=== PATIENT | female | born 1970 | race African-American/Black ===

== ENCOUNTER 2018-01-25 13:10 | Emergency (ER) | payer OTHER ==
[~2018-01-25] VITALS: Ht 147.3 cm; Wt 86.2 kg
--- NOTE | 2018-01-25 13:59 | PHYS DOC ---
Adult General Chief Complaint Chief Complaint: LOWER EXT PAIN HPI HPI Patient is a 47 year old female who presents with states that she last stays that she's had bilateral toe numbness bilateral leg pain. Patient states of late pain only happens when she gets up to walk. States that she was having numbness in the left leg but that it has subsided and has not happened today. Patient states that she just started a new job after not working for 11 years. She started working on the and work from 9 AM to 7 PM moving been sending [employer] and putting up close on racks. She denies any extremity swelling. He denies any chest pain or shortness of air. Patient states that she has quit smoking but uses nicotine gum in the patch but still uses the [place]. Patient states that she does not do marijuana anymore since November. Patient's past medical history consists of peripheral vascular disease, a stent in the left leg and groin due to left artery occlusion, and right kidney problems of which she cannot state exactly what the diagnosis was. Patient states that she also has had urinary frequency and had appointment with her primary care but that the doctor got sick and she cannot follow-up with him. Patient takes hydrochlorothiazide, metoprolol, Zoloft, atorvastatin, and is supposed to be taking a baby aspirin but has not been. She states at home she is only been taking ibuprofen for pain but states that he doesn't seem be working. Patient does walk with a cane to steady on her feet. She is not driving today and that she took a cab. Patient rates her pain 7 out of 10. Review of Systems Review of Systems Constitutional: Denies fever or chills [] Eyes: Denies change in visual acuity, redness, or eye pain [] HENT: Denies nasal congestion or sore throat [] Respiratory: Denies cough or shortness of breath [] Cardiovascular: No additional information not addressed in HPI [] GI: Denies abdominal pain, nausea, vomiting, bloody stools or diarrhea [] : Denies dysuria or hematuria [] Musculoskeletal: Bilateral toes numbness. Bilateral leg pain from hips to feet with walking. Chronic low back pain or joint pain [] Integument: Denies rash or skin lesions [] Neurologic: Denies headache, focal weakness or sensory changes [] Endocrine: Denies polyuria or polydipsia [] All other systems were reviewed and found to be within normal limits, except as documented in this note. Current Medications Current Medications Current Medications Medications (Trade) Dose Ordered Sig/Oneil Start Time Stop Time Status Last Admin Dose Admin Aspirin (Zenaida Aspirin) 325 mg 1X ONCE 01/25/18 14:15 01/25/18 14:16 DC Allergies Allergies Allergies Coded Allergies Type Severity Reaction Last Updated Verified metronidazole Adverse Reaction Intermediate NAUSEA/VOMITING 01/25/18 Yes Physical Exam Physical Exam Constitutional: Well developed, well nourished, no acute distress, non-toxic appearance. [] HENT: Normocephalic, atraumatic, bilateral external ears normal, oropharynx moist, no oral exudates, nose normal. [] Eyes: PERRLA, EOMI, conjunctiva normal, no discharge. [] Neck: Normal range of motion, no tenderness, supple, no stridor. [] Cardiovascular:Heart rate regular rhythm, no murmur [] Lungs & Thorax: Bilateral breath sounds clear to auscultation [] Abdomen: Bowel sounds normal, soft, no tenderness, no masses, no pulsatile masses. [] Skin: Warm, dry, no erythema, no rash. [] Back: No tenderness, no CVA tenderness. [] Extremities: No tenderness, no cyanosis, no clubbing, ROM intact, no edema. [] Neurologic: Alert and oriented X 3, normal motor function, Bilateral toe numbness and states can only feel the pressure of me pushing on her toes sensory function, no focal deficits noted. Psychologic: Affect normal, judgement normal, mood normal. [] Current Patient Data Vital Signs Vital Signs Date Time Temp Pulse Resp B/P (MAP) Pulse Ox O2 Delivery O2 Flow Rate FiO2 01/25/18 13:25 98.1 75 12 200/84 (122) 95 Room Air 98.1 Lab Values Laboratory Tests Test 01/25/18 13:54 01/25/18 14:27 Urine Collection Type Unknown Urine Color Yellow Urine Clarity Cloudy Urine pH 6.0 Urine Specific Shafter 1.020 Urine Protein 30 mg/dL (NEG-TRACE) Urine Glucose (UA) Negative mg/dL (NEG) Urine Ketones (Stick) Negative mg/dL (NEG) Urine Blood Moderate (NEG) Urine Nitrite Negative (NEG) Urine Bilirubin Negative (NEG) Urine Urobilinogen Dipstick 0.2 mg/dL (0.2 mg/dL) Urine Leukocyte Esterase Small (NEG) Urine RBC 6-10 /HPF (0-2) Urine WBC 5-10 /HPF (0-4) Urine Squamous Epithelial Cells Mod /LPF Urine Bacteria Moderate /HPF (0-FEW) Urine Mucus Mod /LPF Glucose (Fingerstick) 98 mg/dL (70-99) EKG EKG [] Radiology/Procedures Radiology/Procedures [] Course & Med Decision Making Course & Med Decision Making Upon examination patient has no extremity edema. Patient's pedal pulses are present Refill is less than 3 seconds bilaterally. Patient denies shortness of air or chest pain. Patient's lungs are clear to auscultation. Patient has chronic low back pain without bony tenderness. Patient just recently started new job and started a lot of heavy pushing and lifting. Patient walks with a cane. Patient has no abdominal tenderness. Patient denies any pallor or coolness of the extremity. Upon examination there is no pallor or coolness of the extremity. Skin is pink warm and dry. Patient is steady on her feet bases cane to ambulate. Patient states only time she has pain is with walking. Patient states that the pain goes from hips down to her feet. Patient has normal sensations from bilateral hips down to feet but her toes she can only feel the pressure of mucus pushing. There is no pain with palpation of her legs bilaterally. There is no calf tenderness and patient denies calf tenderness. She is neurologically intact and is alert and oriented. She has been told the past that she was starting to become diabetic and is worried. Patient states she has a history of peripheral vascular disease. She rates her pain a 7 out of 10 when walking. Per exam seems that patient's pain is only brought on with walking itches presumable claudication. Dr Barksdale has examined the patient also. This patient will be referred to vascular surgery and will be given a prescription for 325mg daily. Patient will also need to follow up with her primary care physician. Left ankle brachial index is 1.08 which is considered negative and Right ankle brachial index is 1 which is also negative. Patients blood glucose is 98. Patient is also treated for a UTI because of her symptoms and UA results with Keflex 500mg BID. [] Dragon Disclaimer Dragon Disclaimer This electronic medical record was generated, in whole or in part, using a voice recognition dictation system. Departure Departure Impression: Primary Impression: Claudication in peripheral vascular disease Additional Impression: Urinary tract infection Disposition: 01 HOME, SELF-CARE Condition: STABLE Referrals: MARINO CM JR, MD (PCP) DEXTER LEON MD Patient Instructions: Intermittent Claudication Additional Instructions: Follow-up with vascular disease. Take a full aspirin daily. Scripts Cephalexin (KEFLEX) 500 Mg Capsule 1 CAP PO BID for uti, #14 CAP Prov: DARREN ABRAHAM APRN 01/25/18 Aspirin (ASPIRIN) 325 Mg Tablet 1 TAB PO DAILY, #30 TAB 5 Refills Prov: DARREN ABRAHAM APRN 01/25/18 Problem Qualifiers Additional Impression: Urinary tract infection Urinary tract infection type: site unspecified Hematuria presence: with hematuria Qualified Codes: N39.0 - Urinary tract infection, site not specified ; R31.9 - Hematuria, unspecified DARREN ABRAHAM APRN Jan 25, 2018 13:59
[2018-01-25 14:03] LABS: BILIRUBIN,URINE NEGATIVE (NEG); CLARITY,URINE CLOUDY; COLOR,URINE YELLOW; NITRITE,URINE NEGATIVE (NEG); PROTEIN,URINE 30 mg/dL (NEG-TRACE); UROBILINOGEN,URINE 0.2 mg/dL (0.2 mg/dL)
[2018-01-25 14:07] LABS: SQUAMOUS EPITHELIAL CELL,UR MOD /LPF
[2018-01-25 14:08] LABS: BACTERIA,URINE MODERATE /HPF (0-FEW)
[2018-01-25] MEDS ORDERED: ASPI325T8 PO (14:10)
[2018-01-25] MEDS ORDERED: CEPH-264 PO (14:14)
[2018-01-25] MEDS ORDERED: ASPIRIN 325 MG TABLET PO ONE (14:15)
[2018-01-25 16:20] VITALS: BP 168/72
== END 2018-01-25 16:20 | disposition home or self-care (01) ==
LOC: ER 13:10
DX: I73.9 Peripheral vascular disease, unspecified (principal); N39.0 Urinary tract infection, site not specified; Z88.8 Allergy status to other drugs, medicaments and biological substances
CPT/HCPCS: 81001; 82962; 87086; 99284

== ENCOUNTER → 2019-03-18 | Outpatient (CLI) | payer MEDICAID ==
[~2019-03-18] MED LIST: ASPI325T8 PO; ASPI81TA50 PO; ATOR10TA60 PO; CEPH-264 PO; CETI10TA16 PO; HYDR12.575 PO; IOHEXOL 180 MG/ML 10 ML VIAL. ONE; METF500T16 PO; METO25TA4 PO; MIRT15TA3 PO; SERT50TA PO; VARE1TAB21 PO; methylPREDNISolone ACETATE 40 MG/ML VIAL. ONE; methylPREDNISolone ACETATE 80 MG/ML VIAL. ONE
--- NOTE | 2019-03-18 15:31 | PAIN ---
DATE OF SERVICE: 03/18/2019 INITIAL CONSULTATION FOR PAIN CLINIC CHIEF COMPLAINT: Low back and bilateral lower extremity pain. HISTORY OF PRESENT ILLNESS: The patient is a 48-year-old female who presents with history of pain since about 2011, not a result of any specific injury or action that she is aware of. The pain in low back and bilateral lower extremities became worse over time, it comes and goes at times, but over the past year has been fairly significant. The patient reports check at rest because the pain is waking her from sleep significantly or occasionally at night, not every night. The patient reports she can get the restroom fast enough as she has kidney disease problems, but the pain from her back and legs is slowing her down where she is having some difficulty getting to the bathroom on time. The patient reports it does affect her ability to walk using a cane, which she has with her today and uses in her right hand. The patient has tried physical therapy in the past as well as doing exercises she is currently doing that now. She does some water therapy as most recently in December of this year. The patient is taking Tylenol with Codeine also tramadol, both of which were not significantly helpful for the pain. She is not taking those within the last month. The patient reports the pain is constant, radiating into the legs, posterior gluteus, posterior thighs into the knees with numbness and tingling sensation as well as dull aching sensation in the back itself. The patient did have an MRI scan of the lumbar spine showing L5-S1, mild facet hypertrophy, minimal bulging annulus with minimal circumferential bulging annulus, mild narrowing of the neural foramina exiting left L5 nerve root contact the bone, again mostly medially, L4-L5 shows mild hypertrophy in the facets, neural foraminal lateral recess is intact. The patient rates her disability rating from 0 to 10, 10 being the worst, is a 10 in all categories, except life support activities, 0 to 10 in self-care, sexual behavior, occupation, social activity, family and home responsibilities and recreational activities. PAST MEDICAL HISTORY: Significant for borderline diabetes, cataracts, COPD, quit smoking 3 months ago, hypertension, frequent UTIs, obesity, arthritis, strokes, and seizures. PREVIOUS SURGERY: Include vascular surgery of the left iliac artery in 2012, hernia repair, abdominal 2014, tubal ligation 2006, heart catheterization 02/2019, which was unable to gain access, the patient is rescheduled for later next month, also right kidney stent. CURRENT MEDICATIONS: Include hydrochlorothiazide, metoprolol, baby aspirin, mirtazapine, metformin, Chantix, atorvastatin, Zoloft and cetirizine. ALLERGIES: THE PATIENT IS ALLERGIC TO FLAGYL, CHOCOLATE, POLLEN, MOLD, AND DUST. FAMILY HISTORY: Significant for cancer and diabetes. SOCIAL HISTORY: The patient drinks alcohol once or twice a year, very infrequently quit smoking cigarettes about 3 months ago, had a 31-tofj-vwge history prior to that not use any illegal or recreational drugs. She is single, lives locally in [place], [place], one child living with her at home currently. 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 REVIEW OF SYSTEMS: The patient's review of systems is positive for those items mentioned in history of present illness. All systems reviewed and otherwise negative. It is complete, full and well documented on the patient's chart. PHYSICAL EXAMINATION: VITAL SIGNS: The patient's blood pressure is 175/65, pulse 64, respirations 16, temperature 98.4 degrees Fahrenheit. Height is 4 feet 10 inches, weight is 220 pounds. GENERAL: The patient is awake, alert, oriented, appropriate, very pleasant demeanor. HEENT: Head shows normocephalic, atraumatic. Extraocular movements are intact and symmetrical. Oral cavity: Mucous membranes moist and pink. Dentition is intact. NECK: Shows anterior throat supple without palpable lymphadenopathy noted. Swallow reflex symmetrical. CHEST: Shows normal on inspection. Breath sounds are clear to auscultation bilaterally. HEART: Shows S1, S2 clear. No murmurs auscultated. ABDOMEN: Soft, nontender, nondistended. No palpable organomegaly is noted. No rebound or guarding demonstrated. BACK: Shows spine grossly in the midline. Normal appearing thoracic kyphosis and minor flattening of lumbar lordotic curvature. Lumbar paraspinous muscle shows symmetrical on inspection, on palpation shows some moderate tenderness diffusely throughout the lumbar distribution both superior, inferior and medial distributions without significant radiation. The patient shows good rotational motion of lumbar spine, both laterally as well as extension and flexion without significant difficulty or pain reported. The patient shows no tenderness over the spinous processes, sacrum or sacroiliac regions. EXTREMITIES: Lower extremities show deep tendon reflexes 1+ in the patellar and tendo-calcaneus tendons are equal. Motor exam is strong with 5/5 dorsiflexion, extension, quadriceps and hamstring flexion and symmetrical. Peripheral pulses are 1+ posterior tibial. No peripheral edema is noted. Straight leg raise noted to be negative for reproduction of radicular symptoms bilaterally. Gaenslen's and Temo's temperature negative bilaterally as well. The patient's lower extremities are warm and dry to touch, equal in color and appearance. The patient is able to stand, difficulty trying to stand on her toes, she does lose balance, but she is able to do so. She is walking with a slight favoring gait, appeared to favor the right lower extremity, again using a cane in her right hand when ambulating. SKIN: Shows warm and dry, good turgor. No edema. No sores, rashes or bruising throughout. IMPRESSION: 1. This is a 48-year-old female with an approximately 7-year history of low back and bilateral lower extremity pain, worse over the past year or so. 2. MRI scan of lumbar spine as noted. 3. Hypertension. 4. Obesity. 5. Arthritis. 6. Recent cigarette smoking and chronic obstructive pulmonary disease. PLAN: Options were discussed with the patient including conservative medical managements, physical therapies and interventional techniques as she has done physical therapies and she would like to pursue interventional techniques. We discussed a lumbar epidural steroid injection using description as well as anatomical models to describe the procedure. Risks were then discussed including, but not limited to bleeding, infection, possibility of epidural hematoma, subsequent neurologic compromise, dural puncture, headaches, spinal cord and/or nerve damage, side effects of steroid medication and poor results regarding pain control. The patient understands and wished to proceed. The patient will return to clinic in approximately 2 weeks for followup. She was counseled on return appointment, activity level and side effects to be aware of. DIAGNOSIS: Lumbar radiculopathy with lumbar degenerative disk disease. PROCEDURE: Lumbar epidural steroid injection, translaminar approach L5-S1 level using C-arm fluoroscopic guidance under sterile prep and drape using local anesthetic. MEDICATION INJECTED: A total of 120 mg Depo-Medrol plus 10 mL of preservative-free normal saline and 2 mL of contrast. CONDITION AT DISCHARGE: Stable. The patient tolerated the procedure well, had no complications. SURESH THOMAS MD DR: ÁNGEL/orlin JOB#: [id number] / [id number]
== END ==
LOC: PNCL 09:47
PROVIDERS: ATTEND Anesthesiology
DX: M51.16 Intervertebral disc disorders with radiculopathy, lumbar region (principal); J44.9 Chronic obstructive pulmonary disease, unspecified; E66.9 Obesity, unspecified; I10 Essential (primary) hypertension; Z87.891 Personal history of nicotine dependence; Z86.73 Personal history of transient ischemic attack (TIA), and cerebral infarction without residual deficits; Z87.440 Personal history of urinary (tract) infections; Z87.39 Personal history of other diseases of the musculoskeletal system and connective tissue; Z98.51 Tubal ligation status; Z98.890 Other specified postprocedural states; Z88.1 Allergy status to other antibiotic agents; Z88.8 Allergy status to other drugs, medicaments and biological substances; Z91.018 Allergy to other foods
CPT/HCPCS: 62323; J1030; J1040; Q9965

== ENCOUNTER → 2019-04-08 | Outpatient (CLI) | payer MEDICAID ==
--- NOTE | 2019-04-08 13:22 | PAIN ---
DATE OF SERVICE: 04/08/2019 PROGRESS NOTE FOR PAIN CLINIC DIAGNOSIS: Lumbar radiculopathy with lumbar degenerative disk disease. HISTORY OF PRESENT ILLNESS: The patient is a 48-year-old female who returns for followup, status post lumbar epidural steroid injection x 1. The patient reports about 80% improvement for the first few weeks, his pain is still there, but is still helping with the pain. Even to this point, the patient reports it is in the low back, buttock, more in the bilateral lower extremities, posterior gluteus, posterior thighs. It is aching, sharp and radiating pain, occasionally unbearable when she is on her feet for more than about an hour. The patient reports it is an 8 on a scale of 10 at its worst over the past week, 6 on average, 4 at its least and is a 6 today. The patient reports no new motor or sensory deficits, no new bowel or bladder incontinence. She has been standing for longer periods of time. General movement and distance walking, doing household activities with much greater ease and comfort as well. The patient reports she is sleeping well at night, does not awaken her from sleep at this time. PHYSICAL EXAMINATION: VITAL SIGNS: The patient's blood pressure is 162/81, pulse 62, respirations 16, temperature 97.8 degrees Fahrenheit, weight is 223 pounds. GENERAL: The patient is awake, alert, oriented, appropriate, very pleasant demeanor. HEENT: Shows normocephalic, atraumatic. Extraocular movements are intact and symmetrical. Oral cavity shows mucous membranes moist and pink. Dentition is intact. NECK: Shows anterior throat supple without palpable lymphadenopathy noted. Swallow reflex symmetrical. CHEST: Shows normal on inspection. Breath sounds clear to auscultation bilaterally. HEART: Shows S1, S2 clear. No murmurs auscultated. ABDOMEN: Soft, nontender, nondistended. No palpable organomegaly is noted. No rebound or guarding demonstrated. BACK: Shows spine grossly in the midline. Normal-appearing thoracic kyphosis and minor flattening of lumbar lordotic curvature. Lumbar paraspinous muscle shows symmetrical on inspection, on palpation shows some moderate tenderness diffusely bilaterally, but only diffusely without significant radiation. EXTREMITIES: The patient's lower extremities show deep tendon reflexes at 1+ in the patellar and tendo calcaneus tendons are equal. Motor exam is strong with 5/5 dorsiflexion, extension, quadriceps and hamstring flexion and symmetrical. Peripheral pulses are 1+ posterior tibia. No peripheral edema is noted bilaterally. Options were discussed with the patient. The patient's old chart was reviewed as her current medication regimen updated. Current review of systems updated today as well. We will proceed with a second in a series of lumbar epidural steroid injection today with fluoroscopic guidance. Risks were again discussed including, but not limited to bleeding, infection, possibility of epidural hematoma, subsequent neurological compromise, dural puncture, headaches, spinal cord and/or nerve damage, side effects of steroid medication and poor results regarding pain control. The patient understands and wished to proceed. The patient will return to the clinic in approximately 2 weeks for followup. She was counseled on return appointment, activity level and side effects to be aware of. DIAGNOSIS: Lumbar radiculopathy with lumbar degenerative disk disease. PROCEDURE: Lumbar epidural steroid injection, translaminar approach L5-S1 level using C-arm fluoroscopic guidance under sterile prep and drape using local anesthetic. MEDICATION INJECTED: A total of 120 mg Depo-Medrol plus 10 mL of preservative-free normal saline and 2 mL of contrast. CONDITION AT DISCHARGE: Stable. The patient tolerated the procedure well, had no complications. SURESH THOMAS MD DR: ÁNGEL/orlin JOB#: [id number] / [id number]
== END ==
LOC: PNCL 09:36
PROVIDERS: ATTEND Anesthesiology
DX: M51.16 Intervertebral disc disorders with radiculopathy, lumbar region (principal)
CPT/HCPCS: 62323; J1030; J1040; Q9965

== ENCOUNTER → 2019-04-22 | Outpatient (CLI) | payer MEDICAID ==
--- NOTE | 2019-04-22 21:58 | PAIN ---
DATE OF SERVICE: 04/22/2019 PROGRESS NOTE FOR PAIN CLINIC DIAGNOSES: Lumbar radiculopathy with lumbar degenerative disk disease. HISTORY OF PRESENT ILLNESS: The patient is a 48-year-old female who returns for followup status post lumbar epidural steroid injections x 2, most recently 04/08/2019, patient did very well with about a 70% improvement initially, now the pain has returned, now is only about 10% overall. The patient reports pain in the low back, bilateral lower extremities, posterior gluteus, radiating to posterior thighs and calves, worse with walking, standing, changing positions. The patient reports it awakens her from sleep only rarely, but about every 6 hours if it does and has over the past 2 days. The patient reports prior to that, she was increasing her distance walking, doing household activities with greater ease and comfort. Now, she is using a cane again in her right hand and the pain is returning. The patient reports it is 8 on a scale of 10 at its worst over the past week, 7 on average, 5 at its least and is a 7 today. The patient reports it is aching, sharp, becoming more constant, more severe with walking, standing, better with sitting or lying down, but again awakens her from sleep occasionally. The patient reports no new motor or sensory deficits, no new bowel or bladder incontinence or other complaints. PHYSICAL EXAMINATION: VITAL SIGNS: The patient's blood pressure is 171/70, pulse is 67, respirations are 18, temperature 98.2 degrees Fahrenheit, height is 4 feet 10 inches, weight is 228 pounds. GENERAL: The patient is awake, alert, oriented, appropriate, very pleasant demeanor. HEENT: Shows normocephalic, atraumatic. Extraocular movements are intact and symmetrical. Oral cavity: Mucous membranes moist and pink. Dentition is intact. NECK: Shows anterior throat supple without palpable lymphadenopathy noted. Swallow reflex symmetrical. CHEST: Shows normal on inspection. Breath sounds are clear bilaterally. HEART: Shows S1, S2 clear. No murmurs auscultated. ABDOMEN: Soft, nontender, nondistended. BACK: Shows spine grossly in the midline. Normal-appearing thoracic kyphosis and lumbar lordotic curvature. Lumbar paraspinous muscle shows symmetrical on inspection, on palpation shows some moderate tenderness diffusely, but only diffusely without significant radiation. EXTREMITIES: The patient's lower extremities show deep tendon reflexes at 1+ in the patellar and tendo calcaneus tendons are equal. Motor exam is strong with 5/5 dorsiflexion, extension and equal. Peripheral pulses are 1+ posterior tibia. No peripheral edema present bilaterally. Options were discussed with the patient. The patient's old chart was reviewed. Her current medication regimen updated. Current review of systems updated today as well. We will proceed with a third in the series of lumbar epidural steroid injection today with fluoroscopic guidance. Risks were again discussed including, but not limited to bleeding, infection, possibility of epidural hematoma, subsequent neurological compromise, dural puncture, headaches, spinal cord and/or nerve damage, side effects of steroid medication and poor results regarding pain control. The patient understands and wished to proceed. The patient will return to clinic in approximately 2 weeks for followup. She was counseled on return appointment, activity level and side effects to be aware of. DIAGNOSIS: Lumbar radiculopathy with lumbar degenerative disk disease. PROCEDURE: Lumbar epidural steroid injection, translaminar approach L5-S1 level using C-arm fluoroscopic guidance under sterile prep and drape using local anesthetic. MEDICATION INJECTED: A total of 120 mg Depo-Medrol plus 10 mL of preservative-free normal saline and 2 mL of contrast. CONDITION AT DISCHARGE: Stable. The patient tolerated procedure well, had no complications. SURESH THOMAS MD DR: ÁNGEL/orlin JOB#: [id number] / [id number]
== END | disposition home or self-care (01) ==
LOC: PNCL 10:09
PROVIDERS: ATTEND Anesthesiology
DX: M51.16 Intervertebral disc disorders with radiculopathy, lumbar region (principal); Z98.890 Other specified postprocedural states; Z88.8 Allergy status to other drugs, medicaments and biological substances
CPT/HCPCS: 62323; J1030; J1040; Q9965